=== PATIENT | male | born 1980 | race Caucasian/White ===

== ENCOUNTER 2017-03-11 07:22 | Emergency (ER) | payer BC ==
[2017-03-11 07:29] VITALS: RESP 18
[2017-03-11] MEDS ORDERED: KETOROLAC 30 MG/ML 1 ML VIAL IVP STA (08:12)
[2017-03-11] MEDS ORDERED: MORPHINE SULFATE 4 MG/ML SYRINGE IV STA (08:12)
[2017-03-11] MEDS ORDERED: ONDANSETRON 4 MG/2 ML VIAL IVP STA (08:12)
[2017-03-11] MEDS ORDERED: SODIUM CHLORIDE 0.9% 1,000 ML IV STA (08:12)
[2017-03-11 08:41] LABS: Basophils # (A) 0.1 k/uL (0-0.2); Basophils % (A) 1 %; CH 36.8; CHCM 35.8; Eosinophils # (A) 0.2 k/uL (0-0.7); Eosinophils % (A) 4 %; HCT 41.6 % (39.0-53.0); HDW 2.84; HGB 14.2 gm/dL (13.0-17.5); Luc # (Auto) 0.25; Luc % (Auto) 4; Lymphocytes # (A) 1.3 k/uL (1.0-4.8); Lymphocytes % (A) 22 %; MCH 35.4 pg (25.0-35.0); MCHC 34.3 g/dL (31.0-37.0); MCV 103.4 fL (80.0-100.0); Macrocytosis Slight; Mean Platelet Volume 6.9; Monocytes # (A) 0.4 k/uL (0-1.0); Monocytes % (A) 7 %; Neutrophils # (A) 3.7 k/uL (1.3-7.7); Neutrophils % (A) 63 %; RBC 4.02 m/uL (4.30-5.90); RDW 13.9 % (11.5-15.5); WBC 5.9 k/uL (3.8-10.6); WBC (Perox) 5.74
[2017-03-11 08:50] LABS: Partial Thromboplastin Time 26.2 sec (22.0-30.0); Prothrombin Time 10.1 sec (9.0-12.0)
[2017-03-11 08:51] LABS: ALT 67 U/L (21-72); AST 33 U/L (17-59); Alkaline Phosphatase 95 U/L (38-126); Amylase 30 U/L (30-110); Anion Gap 10 mmol/L; Blood Urea Nitrogen 22 mg/dL (9-20); Calcium 9.1 mg/dL (8.4-10.2); Carbon Dioxide 27 mmol/L (22-30); Chloride 103 mmol/L (98-107); Glucose 165 mg/dL (74-99); Non-African American GFR(MDRD) >60 (>60 ml/min/1.73 sqM); Potassium 4.9 mmol/L (3.5-5.1); Sodium 140 mmol/L (137-145); Total Bilirubin 0.4 mg/dL (0.2-1.3); Total Protein 6.8 g/dL (6.3-8.2)
[2017-03-11 08:58] LABS: Appearance,Urine Cloudy (Clear); Bilirubin,Urine Negative (Negative); Glucose,Urine (UA) Negative (Negative); Ketones,Urine Negative (Negative); Leukocyte Esterase,Urine Negative (Negative); Mucus,Urine Rare /hpf; Nitrite,Urine Negative (Negative); Particle Count 509; Protein,Urine Negative (Negative); Squamous Epithelial Cell,Urine 2 /hpf (0-4); UA Billing (MACRO vs. MICRO) MICRO; Urobilinogen,Urine <2.0 mg/dL (<2.0); WBC,Urine 3 /hpf (0-5)
--- NOTE | 2017-03-11 10:05 | US ---
EXAMINATION TYPE: US scrotum with doppler. Grayscale and color Doppler Duplex imaging performed of dorian aguilar scrotum. DATE OF EXAM: 03/11/2017 COMPARISON: NONE EC patient with right scrotal pain x 1 week. Patient denies trauma or heavy pushing, pulling, or lifting. CLINICAL HISTORY: Pain. EXAM MEASUREMENTS: TESTICLES: Right Testicle: 4.8 x 2.8 x 2.5 cm Left Testicle: 4.6 x 3.1 x 2.1 cm EPIDIDYMIS HEAD: Right Epididymis: 0.8 x 1.9 x 1.0 cm Left Epididymis: 1.7 x 1.6 x 1.5 cm Grayscale, color and spectral Doppler was performed to assess for testicular vascularity; good bilate ral color flow and waveforms are seen. There is no evidence of testicular torsion. Presence of hydroceles: small fluid collection inferior right scrotal sac with mobile low level inte rnal echoes = 2.0 x 0.8 x 0.5cm. Small fluid collection inferior left scrotal sac with mobile low lev el internal echoes = 0.8 x 1.4 x 1.2cm. Presence of varicoceles: mildly prominent veins with valsalva maneuver noted right epididymis inferi jen with vein size = 0.26cm (abnl = >0.25cm). Testicular echotexture is homogenous and symmetric. IMPRESSION: Nonspecific findings, small hydroceles. No evident testicular torsion. Possible borderlin e varicocele.
--- NOTE | 2017-03-11 10:19 | ED ---
Back Pain HPI - General Chief Complaint: Back Pain/Injury Stated Complaint: Lowe back and groin pain Time Seen by Provider: 03/11/17 07:54 Source: patient, RN notes reviewed, old records reviewed Limitations: no limitations - Related Data Previous Rx's Medication Instructions Recorded Cyclobenzaprine [Flexeril] 10 mg PO TID #20 tab 03/11/17 Ibuprofen [Motrin] 600 mg PO Q8HR PRN #20 tab 03/11/17 Allergies Allergy/AdvReac Type Severity Reaction Status Date / Time No Known Allergies Allergy Verified 03/11/17 08:18 Review of Systems ROS Statement: Those systems with pertinent positive or pertinent negative responses have been documented in the HPI. ROS Other: All systems not noted in ROS Statement are negative. Past Medical History Past Medical History: Diabetes Mellitus, Thyroid Disorder History of Any Multi-Drug Resistant Organisms: None Reported Past Surgical History: Orthopedic Surgery, Tonsillectomy Additional Past Surgical History / Comment(s): right ankle Past Psychological History: No Psychological Hx Reported Smoking Status: Never smoker Past Alcohol Use History: Daily Past Drug Use History: None Reported General Exam Limitations: no limitations Course Vital Signs 03/11/17 07:24 Temperature 97.6 F Pulse Rate 84 Respiratory 18 Rate Blood Pressure 169/90 O2 Sat by Pulse 99 Oximetry Medical Decision Making - Lab Data Result diagrams: 03/11/17 08:30 03/11/17 08:30 Lab Results 03/11/17 03/11/17 03/11/17 Range/Units 08:30 08:30 08:30 WBC 5.9 (3.8-10.6) k/uL RBC 4.02 L (4.30-5.90) m/uL Hgb 14.2 (13.0-17.5) gm/dL Hct 41.6 (39.0-53.0) % MCV 103.4 H (80.0-100.0) fL MCH 35.4 H (25.0-35.0) pg MCHC 34.3 (31.0-37.0) g/dL RDW 13.9 (11.5-15.5) % Plt Count 205 (150-450) k/uL Neutrophils % 63 % Lymphocytes % 22 % Monocytes % 7 % Eosinophils % 4 % Basophils % 1 % Neutrophils # 3.7 (1.3-7.7) k/uL Lymphocytes # 1.3 (1.0-4.8) k/uL Monocytes # 0.4 (0-1.0) k/uL Eosinophils # 0.2 (0-0.7) k/uL Basophils # 0.1 (0-0.2) k/uL Macrocytosis Slight PT 10.1 (9.0-12.0) sec INR 1.0 (<1.2) APTT 26.2 (22.0-30.0) sec Sodium 140 (137-145) mmol/L Potassium 4.9 (3.5-5.1) mmol/L Chloride 103 (98-107) mmol/L Carbon Dioxide 27 (22-30) mmol/L Anion Gap 10 mmol/L BUN 22 H (9-20) mg/dL Creatinine 1.11 (0.66-1.25) mg/dL Est GFR (MDRD) Af Amer >60 (>60 ml/min/1.73 sqM) Est GFR (MDRD) Non-Af >60 (>60 ml/min/1.73 sqM) Glucose 165 H (74-99) mg/dL Calcium 9.1 (8.4-10.2) mg/dL Total Bilirubin 0.4 (0.2-1.3) mg/dL AST 33 (17-59) U/L ALT 67 (21-72) U/L Alkaline Phosphatase 95 (38-126) U/L Total Protein 6.8 (6.3-8.2) g/dL Albumin 4.2 (3.5-5.0) g/dL Amylase 30 (30-110) U/L Lipase 122 (23-300) U/L Urine Color Urine Appearance (Clear) Urine pH (5.0-8.0) Ur Specific Glady (1.001-1.035) Urine Protein (Negative) Urine Glucose (UA) (Negative) Urine Ketones (Negative) Urine Blood (Negative) Urine Nitrite (Negative) Urine Bilirubin (Negative) Urine Urobilinogen (<2.0) mg/dL Ur Leukocyte Esterase (Negative) Urine WBC (0-5) /hpf Ur Squamous Epith Cells (0-4) /hpf Urine Mucus (None) /hpf 03/11/17 Range/Units 08:30 WBC (3.8-10.6) k/uL RBC (4.30-5.90) m/uL Hgb (13.0-17.5) gm/dL Hct (39.0-53.0) % MCV (80.0-100.0) fL MCH (25.0-35.0) pg MCHC (31.0-37.0) g/dL RDW (11.5-15.5) % Plt Count (150-450) k/uL Neutrophils % % Lymphocytes % % Monocytes % % Eosinophils % % Basophils % % Neutrophils # (1.3-7.7) k/uL Lymphocytes # (1.0-4.8) k/uL Monocytes # (0-1.0) k/uL Eosinophils # (0-0.7) k/uL Basophils # (0-0.2) k/uL Macrocytosis PT (9.0-12.0) sec INR (<1.2) APTT (22.0-30.0) sec Sodium (137-145) mmol/L Potassium (3.5-5.1) mmol/L Chloride (98-107) mmol/L Carbon Dioxide (22-30) mmol/L Anion Gap mmol/L BUN (9-20) mg/dL Creatinine (0.66-1.25) mg/dL Est GFR (MDRD) Af Amer (>60 ml/min/1.73 sqM) Est GFR (MDRD) Non-Af (>60 ml/min/1.73 sqM) Glucose (74-99) mg/dL Calcium (8.4-10.2) mg/dL Total Bilirubin (0.2-1.3) mg/dL AST (17-59) U/L ALT (21-72) U/L Alkaline Phosphatase (38-126) U/L Total Protein (6.3-8.2) g/dL Albumin (3.5-5.0) g/dL Amylase (30-110) U/L Lipase (23-300) U/L Urine Color Light Yellow Urine Appearance Cloudy (Clear) Urine pH 5.0 (5.0-8.0) Ur Specific Glady 1.010 (1.001-1.035) Urine Protein Negative (Negative) Urine Glucose (UA) Negative (Negative) Urine Ketones Negative (Negative) Urine Blood Negative (Negative) Urine Nitrite Negative (Negative) Urine Bilirubin Negative (Negative) Urine Urobilinogen <2.0 (<2.0) mg/dL Ur Leukocyte Esterase Negative (Negative) Urine WBC 3 (0-5) /hpf Ur Squamous Epith Cells 2 (0-4) /hpf Urine Mucus Rare H (None) /hpf - Radiology Data Radiology results: report reviewed Testicular ultrasound was performed and nonspecific findings including small hydroceles. No evidence of testicular torsion. Possible borderline varicoceles. Disposition Clinical Impression: Lower back pain, Testicular/scrotal pain, Hydrocele Disposition: HOME SELF-CARE Condition: Good Instructions: Testicle Pain (ED), Low Back Strain (ED) Additional Instructions: Patient needs to apply ice to the scrotum, and complete scrotal support such as using a jockstrap. Follow-up with urology and primary care physician. Take the medications as prescribed. Return to emergency department if any alarming signs or symptoms occur. Prescriptions: Cyclobenzaprine [Flexeril] 10 mg PO TID #20 tab Ibuprofen [Motrin] 600 mg PO Q8HR PRN #20 tab PRN Reason: Pain Referrals: Zayra Huitron DO [Primary Care Provider] - 1-2 days Time of Disposition: 11:05
[2017-03-11 11:21] VITALS: BP 136/61; PULSE 76; TEMP 98.4
== END 2017-03-11 11:22 | disposition home or self-care (01) ==
LOC: EC 07:22
DX: N43.3 Hydrocele, unspecified (principal); M54.5 Low back pain
CPT/HCPCS: 36415; 80053; 82150; 83690; 85025; 85610; 85730; 81001; 93975; 76870; 99284; 96374; 96375 ×2; 96361; J2270; J2405; J1885

== ENCOUNTER → 2017-03-12 | Outpatient (CLI) | payer BC ==
--- NOTE | 2017-03-12 15:21 | CT ---
EXAMINATION TYPE: CT abdomen pelvis wo con DATE OF EXAM: 03/12/2017 COMPARISON: NONE HISTORY: Flank pain, RLQ pain CT DLP: 3449 mGycm Automated exposure control for dose reduction was used. TECHNIQUE: Helical acquisition of images from the lung bases through the pelvis. Patient received or al contrast. FINDINGS: Umbilical hernia contains fat. There is motion on the exam. LUNG BASES: No significant abnormality is appreciated. AORTA: No significant abnormality is appreciated. LIVER/GB: The liver is enlarged and low in attenuation suggesting hepatic steatosis. Gallbladder is n ormal. PANCREAS: No significant abnormality is seen. SPLEEN: Spleen is enlarged ADRENALS: No significant abnormality is seen. KIDNEYS: No significant abnormality is seen. REPRODUCTIVE ORGANS: No significant abnormality is seen. URINARY BLADDER: Bladder wall is thickened. Correlate to exclude cystitis. BOWEL: Mild diverticular changes, the appendix is normal. FREE AIR: No Free Air is visible. ASCITES: None visible. PELVIC ADENOPATHY: None visualized. RETROPERITONEAL ADENOPATHY: No Retroperitoneal Adenopathy visible. OSSEOUS STRUCTURES: Bilateral spondylolysis is present. Anterolisthesis grade 1 L5-S1. There may be some encroachment on the neural foramina. Degenerative disc changes are present in the visualized spi ne. Some central loss of height at L1 possibly due to Schmorl's nodes.. IMPRESSION: HEPATOSPLENOMEGALY. PROBABLE HEPATIC STEATOSIS. UMBILICAL HERNIA. CORRELATE FOR POSSIBLE CYSTITIS. Fi ndings in the spine as described, noncontrast exam A Yellow message has been communicated to Zayra Huitron DO via the [employer] Critical Result system on 03/12/2017 3:18 PM, Message ID [id number].
== END | disposition home or self-care (01) ==
LOC: RADCTMAIN 12:47
PROVIDERS: ATTEND Family Medicine
DX: K42.9 Umbilical hernia without obstruction or gangrene (principal); R16.2 Hepatomegaly with splenomegaly, not elsewhere classified; R10.31 Right lower quadrant pain
CPT/HCPCS: 74176

== ENCOUNTER 2021-12-10 13:01 | Observation (INO) | payer OTHER ==
--- NOTE | 2021-12-10 14:08 | ED ---
General Adult HPI - General Chief complaint: Neuro Symptoms/Deficit Stated complaint: Numbness on left Time Seen by Provider: 12/10/21 13:53 Source: patient, family, RN notes reviewed Mode of arrival: wheelchair Limitations: no limitations - History of Present Illness Initial comments: Patient is a pleasant 41-year-old male presenting to the emergency department with concerns for left-sided problems. Onset was around 6:30 last night. Patient's left leg when out on him otherwise has not noticed any weakness. Patient has hot sensations left arm and left leg since that time. No facial involvement. No chest or abdominal pain. Patient does have a mild headache however this is chronic for him and similar to his chronic headaches. - Related Data Previous Rx's Medication Instructions Recorded Cyclobenzaprine [Flexeril] 10 mg PO TID #20 tab 03/11/17 Ibuprofen [Motrin] 600 mg PO Q8HR PRN #20 tab 03/11/17 Allergies Allergy/AdvReac Type Severity Reaction Status Date / Time No Known Allergies Allergy Verified 12/10/21 15:59 Review of Systems ROS Statement: Those systems with pertinent positive or pertinent negative responses have been documented in the HPI. ROS Other: All systems not noted in ROS Statement are negative. Constitutional: Denies: fever Eyes: Denies: eye pain ENT: Denies: ear pain Respiratory: Denies: cough Cardiovascular: Denies: chest pain Endocrine: Denies: fatigue Gastrointestinal: Denies: abdominal pain Genitourinary: Denies: dysuria Musculoskeletal: Denies: back pain Skin: Denies: rash Neurological: Reports: as per HPI, paresthesias Past Medical History Past Medical History: Diabetes Mellitus, Thyroid Disorder History of Any Multi-Drug Resistant Organisms: None Reported Past Surgical History: Orthopedic Surgery, Tonsillectomy Additional Past Surgical History / Comment(s): right ankle Past Psychological History: No Psychological Hx Reported Past Alcohol Use History: Daily Past Drug Use History: None Reported General Exam Limitations: no limitations General appearance: alert, in no apparent distress Head exam: Present: normocephalic Eye exam: Present: normal appearance, PERRL, EOMI ENT exam: Present: normal exam Neck exam: Present: normal inspection Respiratory exam: Present: normal lung sounds bilaterally Cardiovascular Exam: Present: regular rate, normal rhythm GI/Abdominal exam: Present: soft. Absent: tenderness Extremities exam: Present: normal inspection Neurological exam: Present: alert, oriented X3, CN II-XII intact Expanded Neurological exam: Present: protecting the airway Speech: Present: fluid speech Cranial nerves: EOM's Intact: Normal, Facial Sensation: Normal Sensory exam: Upper Extremity Light Touch: Normal, Lower Extremity Light Touch: Abnormal Left Motor strength exam: RUE: 5, LUE: 5, RLE: 5, LLE: 5 Eye Response: (4) open spontaneously Motor Response: (6) obeys commands Verbal Response: (5) oriented Psychiatric exam: Present: normal affect, normal mood Skin exam: Present: normal color Course Vital Signs 12/10/21 12/10/21 13:26 15:07 Temperature 97.9 F Pulse Rate 90 76 Respiratory 20 18 Rate Blood Pressure 129/83 131/67 O2 Sat by Pulse 99 99 Oximetry - Reevaluation(s) Reevaluation #1: 12/10/21 16:00 Repeat EKG shows sinus rhythm with frequent supraventricular complexes. Rate 72. HI 156. QRS 83. QT 3:30. QTC 358. Normal axis. Low QRS voltage. No acute ST change. EKG Findings - EKG Comments: EKG Findings:: Sinus rhythm with a rate of 91. HI 171. QRS 85. QT 331. QTc 380. Normal axis. Low QRS voltage. No acute ST change. Medical Decision Making - Medical Decision Making Patient reevaluated and unchanged. Patient and family updated on results and plan. Case discussed with Dr. cantrell, who will admit covering for hospital observation call. Monitor with concern for atrial fibrillation, repeat EKG will be obtained. - Lab Data Result diagrams: 12/10/21 14:07 12/10/21 14:07 Lab Results 12/10/21 12/10/21 12/10/21 Range/Units 14:07 14:07 14:07 WBC 6.4 (3.8-10.6) k/uL RBC 3.99 L (4.30-5.90) m/uL Hgb 13.9 (13.0-17.5) gm/dL Hct 40.0 (39.0-53.0) % MCV 100.0 (80.0-100.0) fL MCH 34.7 (25.0-35.0) pg MCHC 34.7 (31.0-37.0) g/dL RDW 12.5 (11.5-15.5) % Plt Count 190 (150-450) k/uL MPV 7.0 Neutrophils % 65 % Lymphocytes % 23 % Monocytes % 7 % Eosinophils % 3 % Basophils % 1 % Neutrophils # 4.1 (1.3-7.7) k/uL Lymphocytes # 1.5 (1.0-4.8) k/uL Monocytes # 0.4 (0-1.0) k/uL Eosinophils # 0.2 (0-0.7) k/uL Basophils # 0.1 (0-0.2) k/uL PT 10.2 (9.0-12.0) sec INR 0.9 (<1.2) APTT 25.0 (22.0-30.0) sec Sodium 138 (137-145) mmol/L Potassium 4.8 (3.5-5.1) mmol/L Chloride 102 (98-107) mmol/L Carbon Dioxide 26 (22-30) mmol/L Anion Gap 10 mmol/L BUN 27 H (9-20) mg/dL Creatinine 1.24 (0.66-1.25) mg/dL Est GFR (CKD-EPI)AfAm 82 (>60 ml/min/1.73 sqM) Est GFR (CKD-EPI)NonAf 71 (>60 ml/min/1.73 sqM) Glucose 113 H (74-99) mg/dL Calcium 9.9 (8.4-10.2) mg/dL Total Bilirubin 0.5 (0.2-1.3) mg/dL AST 27 (17-59) U/L ALT 37 (4-49) U/L Alkaline Phosphatase 73 (38-126) U/L Troponin I (0.000-0.034) ng/mL Total Protein 7.0 (6.3-8.2) g/dL Albumin 4.4 (3.5-5.0) g/dL 12/10/21 Range/Units 14:07 WBC (3.8-10.6) k/uL RBC (4.30-5.90) m/uL Hgb (13.0-17.5) gm/dL Hct (39.0-53.0) % MCV (80.0-100.0) fL MCH (25.0-35.0) pg MCHC (31.0-37.0) g/dL RDW (11.5-15.5) % Plt Count (150-450) k/uL MPV Neutrophils % % Lymphocytes % % Monocytes % % Eosinophils % % Basophils % % Neutrophils # (1.3-7.7) k/uL Lymphocytes # (1.0-4.8) k/uL Monocytes # (0-1.0) k/uL Eosinophils # (0-0.7) k/uL Basophils # (0-0.2) k/uL PT (9.0-12.0) sec INR (<1.2) APTT (22.0-30.0) sec Sodium (137-145) mmol/L Potassium (3.5-5.1) mmol/L Chloride (98-107) mmol/L Carbon Dioxide (22-30) mmol/L Anion Gap mmol/L BUN (9-20) mg/dL Creatinine (0.66-1.25) mg/dL Est GFR (CKD-EPI)AfAm (>60 ml/min/1.73 sqM) Est GFR (CKD-EPI)NonAf (>60 ml/min/1.73 sqM) Glucose (74-99) mg/dL Calcium (8.4-10.2) mg/dL Total Bilirubin (0.2-1.3) mg/dL AST (17-59) U/L ALT (4-49) U/L Alkaline Phosphatase (38-126) U/L Troponin I <0.012 (0.000-0.034) ng/mL Total Protein (6.3-8.2) g/dL Albumin (3.5-5.0) g/dL Disposition Clinical Impression: Cerebrovascular accident (CVA) Disposition: ADMITTED IP TO THIS HOSP Is patient prescribed a controlled substance at d/c from ED?: No Referrals: Zayra Huitron DO [Primary Care Provider] - 1-2 days Time of Disposition: 15:58
[2021-12-10 14:31] LABS: INR 0.9 (<1.2); Prothrombin Time 10.2 sec (9.0-12.0)
[2021-12-10 14:34] LABS: Albumin 4.4 g/dL (3.5-5.0); Calcium 9.9 mg/dL (8.4-10.2); Potassium 4.8 mmol/L (3.5-5.1); Total Bilirubin 0.5 mg/dL (0.2-1.3)
--- NOTE | 2021-12-10 14:38 | XR ---
EXAMINATION TYPE: XR chest 2V DATE OF EXAM: 12/10/2021 COMPARISON: NONE HISTORY: Altered mental status, left-sided numbness and headache TECHNIQUE: Frontal and lateral views of the chest are obtained. FINDINGS: There is no focal air space opacity, pleural effusion, or pneumothorax seen. The cardiac silhouette size is within normal limits. The osseous structures are intact. There are overlying car diac leads. Right hemidiaphragm is mildly elevated. IMPRESSION: No acute cardiopulmonary process.
--- NOTE | 2021-12-10 14:42 | CT ---
EXAMINATION TYPE: CT brain wo con DATE OF EXAM: 12/10/2021 COMPARISON: None available HISTORY: headache CT DLP: 1103.6 mGycm Automated exposure control for dose reduction was used. TECHNIQUE: CT scan of the brain is performed without IV contrast administration. FINDINGS: No acute intracranial hemorrhage. No gross acute cortical infarct. No midline shift, herniation or ve ntriculomegaly. Unremarkable castro-white matter differentiation, basal cisterns, sella and CP angles. No gross space-o ccupying lesion, vasogenic edema or mass effect. Unremarkable orbits. Clear visualized paranasal sinuses and mastoid air cells. Unremarkable calvarial bones. IMPRESSION: No acute intracranial abnormality or gross space-occupying lesion by this nonenhanced CT scan.
[2021-12-10 14:52] LABS: Basophils # (A) 0.1 k/uL (0-0.2); Basophils % (A) 1 %; Eosinophils # (A) 0.2 k/uL (0-0.7); Eosinophils % (A) 3 %; HGB 13.9 gm/dL (13.0-17.5); Lymphocytes # (A) 1.5 k/uL (1.0-4.8); Lymphocytes % (A) 23 %; MCH 34.7 pg (25.0-35.0); MCHC 34.7 g/dL (31.0-37.0); Monocytes # (A) 0.4 k/uL (0-1.0); Monocytes % (A) 7 %; Neutrophils # (A) 4.1 k/uL (1.3-7.7); Neutrophils % (A) 65 %; Platelet Count 190 k/uL (150-450); RBC 3.99 m/uL (4.30-5.90); RDW 12.5 % (11.5-15.5); WBC 6.4 k/uL (3.8-10.6)
--- NOTE | 2021-12-10 15:14 | CT ---
EXAMINATION TYPE: CT angio head neck DATE OF EXAM: 12/10/2021 HISTORY: headache and weakness COMPARISON: Nonenhanced CT brain performed earlier same day CT DLP: 908.9 mGycm. Automated Exposure Control for Dose Reduction was Utilized. TECHNIQUE: CTA scan of the head and neck is performed with IV Contrast, patient injected with 65cc m L of Isovue 370, axial images are obtained, coronal and sagittal reformatted images are reviewed. 3D reconstructed images are created on an independent workstation and reviewed. FINDINGS: Artifactual images. Carotid/Vascular Structures: Normal caliber and enhancement of the neck arteries and intracranial art eries without significant stenosis, occlusion, dissection, aneurysm or AV malformation. Patent major intracranial venous sinuses. Other: No intracranial abnormal enhancement. Prominent nasopharyngeal soft tissue. Slightly prominent thyroid gland. IMPRESSION: No significant arterial abnormality seen in the head or the neck. Please note that a subtle arterial spasm or vasculitis cannot be excluded by this CTA. Incidental findings as described above.
[2021-12-10] MEDS ORDERED: ASPIRIN 325 MG TAB PO STA (15:56)
[2021-12-10] MEDS: SODIUM CHLORIDE 0.9% 1,000 ML IV SCH (16:45)
[2021-12-10] MEDS ORDERED: ATORVASTATIN 80 MG TAB PO STA (17:32)
[2021-12-10 18:06] LABS: Glucose,Whole Blood 95 mg/dL (75-99)
--- NOTE | 2021-12-10 19:07 | CA ---
Transthoracic Echo Report Name: Tae Peters Age: 41 Gender: M : 1980 Exam Date: 12/10/2021 16:16 Exam Location: [facility] Ht (in): 73 Wt (lb): 302 Ordering Physician: Lang Chou DO Attending/Referring Phys: Other Spatial Scientist Summer Zavala RDCS Procedure CPT: Indications: Thrombus Cardiac Hx: Technical Quality: Fair Contrast 1: Total Dose (mL): Contrast 2: Total Dose (mL): MEASUREMENTS (Male / Female) Normal Values 2D ECHO LV Diastolic Diameter PLAX 5.2 cm 4.2 - 5.9 / 3.9 - 5.3 cm LV Systolic Diameter PLAX 3.6 cm IVS Diastolic Thickness 1.1 cm 0.6 - 1.0 / 0.6 - 0.9 cm LVPW Diastolic Thickness 1.1 cm 0.6 - 1.0 / 0.6 - 0.9 cm LV Relative Wall Thickness 0.4 RV Internal Dim ED PLAX 3.3 cm LA Systolic Diameter LX 3.6 cm 3.0 - 4.0 / 2.7 - 3.8 cm M-MODE Aortic Root Diameter MM 3.1 cm MV E Point Septal Separation 0.4 cm AV Cusp Separation MM 2.2 cm DOPPLER AV Peak Velocity 137.6 cm/s AV Peak Gradient 7.6 mmHg MV Area PHT 3.7 cm??? Mitral E Point Velocity 104.8 cm/s Mitral A Point Velocity 90.4 cm/s Mitral E to A Ratio 1.2 MV Deceleration Time 203.0 ms MV E' Velocity 12.6 cm/s Mitral E to MV E' Ratio 8.3 FINDINGS Left Ventricle Left ventricular ejection fraction is estimated at 60-65 %. Normal Left ventricular size, wall thickness, systolic function with no obvious regional wall motion abnormalities. Normal Left ventricular diastolic filling pattern. Right Ventricle Mild right ventricular dilatation. Unable to estimate the right ventricular systolic pressure. Right Atrium Normal right atrial size. Left Atrium Normal left atrial size. No evidence for an atrial septal defect. Mitral Valve Structurally normal mitral valve. No mitral stenosis, regurgitation or prolapse. Aortic Valve Trileaflet aortic valve. No aortic valve stenosis or regurgitation. Tricuspid Valve Structurally normal tricuspid valve. Pulmonic Valve No pulmonic regurgitation. Pericardium Normal pericardium. Aorta Normal size aortic root and proximal ascending aorta. CONCLUSIONS Preserved LV size and systolic function without segmental wall motion abnormalities Previewed by: Dr. Kirt Dias MD (Electronically Signed) Final Date: 10 Dec 2021 19:06
[2021-12-10 20:48] LABS: Glucose,Whole Blood 109 mg/dL (75-99)
--- NOTE | 2021-12-10 22:05 | P.HPIM ---
History of Present Illness H&P Date: 12/10/21 Chief Complaint: Left-sided numbness 40-year-old man with medical history of hypertension, hypothyroidism, diabetes presented for evaluation of left-sided numbness. Patient says that starting yesterday around 6:30 PM, he noticed that his left leg was numb, then throughout the day proceeds to involve his left arm as well. He went to sleep, assuming that the symptoms would go away by this morning, however, when they didn't, he presented to the emergency room for further evaluation. He denies fevers, chills, nausea, vomiting, chest pain, palpitations, sick, presyncope, cough, dyspnea, abdominal pain, dysuria, dyschezia, constipation, diarrhea, weakness of the extremities. Upon my evaluation, patient was afebrile, 134/77, heart rate 71, 97% on room air. Pain CBC is unremarkable. Chemistries are unremarkable. LFTs unremarkable. Troponin was negative. TSH was 1.78. Initial EKG demonstrated sinus rhythm with no evidence of ischemia. Second EKG showed sinus rhythm with frequent PACs. Head CT was negative for intracranial bleed or large vessel occlusion. Chest x-ray did not show any acute cardiopulmonary process. CT of the head and neck did not show any significant arterial abnormalities. Echocardiogram showed an ejection fraction of 60-65% without any wall motion abnormality. All Systems reviewed and pertinent positives and negatives noted in HPI, all other symptoms are negative Gen: awake, alert HEENT: normocephalic, atraumatic, good hearing acuity, moist mucous membranes Resp: good air exchange, breathing comfortably with no accessory muscle use CVS: good distal perfusion x 4, GI: soft, NTTP, ND : no SPT, no CVAT, pop catheter not present MSK: no pitting edema, no clubbing Neuro: non-focal, moving all extremities Psych: cooperative, euthymic mood Labs and imaging reviewed as above Assessment/plan: Left-sided numbness -Admit to observation, telemetry -Neurology consult -Aspirin, statin -MRI of the brain is pending -A1c is pending, TSH is noted, lipid panel was pending -Echocardiogram as noted Hypertension Hypothyroidism Diabetes -Home medications reviewed and reconciled -Sliding scale insulin Patient is full code DVT prophylaxis with heparin 3 times a day Past Medical History Past Medical History: Diabetes Mellitus, Thyroid Disorder History of Any Multi-Drug Resistant Organisms: None Reported Past Surgical History: Orthopedic Surgery, Tonsillectomy Additional Past Surgical History / Comment(s): right ankle Past Anesthesia/Blood Transfusion Reactions: No Reported Reaction Past Psychological History: No Psychological Hx Reported Past Alcohol Use History: Daily Past Drug Use History: None Reported - Past Family History Mother Family Medical History: Cancer, COPD Additional Family Medical History / Comment(s): passed from lung and breast cancer Father Family Medical History: Hypertension Additional Family Medical History / Comment(s): of a heart attack Brother(s) Family Medical History: Diabetes Mellitus Additional Family Medical History / Comment(s): half brother hx diabets, dialysis pt Medications and Allergies Home Medications Medication Instructions Recorded Confirmed Type Indomethacin [Indocin] 50 mg PO DAILY 12/10/21 12/10/21 History Levothyroxine Sodium [Synthroid] 75 mcg PO DAILY 12/10/21 12/10/21 History Lisinopril-Hctz 20-25 mg 1 tab PO DAILY 12/10/21 12/10/21 History [Zestoretic 20-25] Semaglutide [Ozempic] 0.5 mg SQ TH 12/10/21 12/10/21 History metFORMIN HCL [metFORMIN HCL ER] 1,000 mg PO BID 12/10/21 12/10/21 History Allergies Allergy/AdvReac Type Severity Reaction Status Date / Time No Known Allergies Allergy Verified 12/10/21 15:59 Physical Exam Osteopathic Statement: *. No significant issues noted on an osteopathic structural exam other than those noted in the History and Physical/Consult. Vitals: Vital Signs Temp Pulse Pulse Resp BP BP Pulse Ox 12/10/21 20:00 97.8 F 71 12 134/77 97 12/10/21 17:45 97.6 F 87 18 120/73 98 12/10/21 16:58 68 18 122/77 99 12/10/21 15:58 71 18 132/72 99 12/10/21 15:07 76 18 131/67 99 12/10/21 13:26 97.9 F 90 20 129/83 99 Intake and Output 12/10/21 12/10/21 12/10/21 06:59 14:59 22:59 Other: Weight 136.985 kg 141.8 kg Results CBC & Chem 7: 12/10/21 14:07 12/10/21 14:07 Labs: Abnormal Lab Results - Last 24 Hours (Table) 12/10/21 12/10/21 12/10/21 Range/Units 14:07 14:07 20:42 RBC 3.99 L (4.30-5.90) m/uL BUN 27 H (9-20) mg/dL Glucose 113 H (74-99) mg/dL POC Glucose (mg/dL) 109 H (75-99) mg/dL Thrombosis Risk Factor Assmnt - Choose All That Apply Each Factor Represents 1 point: Age 41-60 years Thrombosis Risk Factor Assessment Total Risk Factor Score: 1 Thrombosis Risk Factor Assessment Level: Low Risk
[2021-12-10] MEDS: HEPARIN SODIUM,PORCINE/PF 5,000 UNIT/0.5 ML SYRINGE SQ SCH (23:49)
[2021-12-11] MEDS: SODIUM CHLORIDE 0.9% 1,000 ML IV SCH ×2 (02:00→14:10)
[2021-12-11 06:45] LABS: Glucose,Whole Blood 92 mg/dL (75-99)
[2021-12-11] MEDS: INSULIN ASPART (NovoLOG) 100 UNIT/ML VIAL SQ SCH ×3 (06:49→17:41)
[2021-12-11] MEDS: LEVOTHYROXINE 75 MCG TAB PO SCH (06:50)
[2021-12-11] MEDS ORDERED: ASPIRIN 325 MG TAB PO SCH (09:00)
[2021-12-11] MEDS: ASPIRIN 81 MG PO SCH (09:09)
[2021-12-11] MEDS: LISINOPRIL-HCTZ 20-25 MG 1 EACH TAB PO SCH (09:09)
[2021-12-11] MEDS: HEPARIN SODIUM,PORCINE/PF 5,000 UNIT/0.5 ML SYRINGE SQ SCH ×3 (09:10→23:33)
[2021-12-11 09:15] LABS: Basophils # (A) 0.1 k/uL (0-0.2); Basophils % (A) 1 %; Eosinophils # (A) 0.2 k/uL (0-0.7); Eosinophils % (A) 4 %; HCT 40.6 % (39.0-53.0); HGB 13.6 gm/dL (13.0-17.5); Lymphocytes % (A) 23 %; MCH 34.4 pg (25.0-35.0); MCHC 33.6 g/dL (31.0-37.0); MCV 102.1 fL (80.0-100.0); Macrocytosis Slight; Mean Platelet Volume 6.8; Monocytes # (A) 0.3 k/uL (0-1.0); Monocytes % (A) 6 %; Neutrophils # (A) 2.8 k/uL (1.3-7.7); Neutrophils % (A) 63 %; Platelet Count 188 k/uL (150-450); RBC 3.97 m/uL (4.30-5.90); RDW 13.3 % (11.5-15.5); WBC 4.4 k/uL (3.8-10.6)
--- NOTE | 2021-12-11 09:20 | P.CNNES ---
History of Present Illness Consult date: 12/11/21 Requesting physician: Lang Chou Reason for Consult: cva History of Present Illness: This is a 41-year-old gentleman with medical history of diabetes, hypothyroidism, bilateral carpal tunnel syndrome, chronic low back pain who presented to the emergency department on 12/10/2021 for left sided weakness and numbness. Onset of symptoms is around 6:30pm on 12/09/2021. Initially he felt numbness of the left lower extremity with weakness but then felt he could manage with those issues so he went to sleep. Next day he continued to have the same issue with worsening numbness of the left upper extremity more than baseline. He stated he has left carpal tunnel but felt numbness of left upper extremity is worse. So decided to seek medical attention. He noticed weakness of the left arm. Today he has soreness of the left upper extremity. He denies history of stroke or TIA in past. He denies of neck pain and states he has old chronic low back pain but not worse. He drink 2 cups of beer daily and more heavily on weekends. Patient is not on any antiplatelet or anticoagulation. Some of the workup in the hospital consisted of: CT of the head is reported as no acute intracranial abnormality or gross space-occupying lesion by this nonenhanced computed tomography scan. CT angiography of the head and neck reported as no significant arterial abnormality seen in the head or neck. Please note that a subtotal altered spasm or vasculitis cannot be excluded by this CTA. I personally reviewed that a CT of the head and there is no acute or subacute ischemia there is no interpretable hemorrhage. EKG is reported as sinus rhythm with occasional supraventricular premature complexes. White blood cell is 6.4 thousand. Chemistry panels I reviewed it and it seems unremarkable. No IV TPA since the patient is outside the window and the risk outweighed the benefit. Per the ED attending the monitor shows concerning for atrial fibrillation and a repeat EKG was obtained and no atrial fibrillation was seen on the EKG Review of Systems Review of system: The 12 point system was reviewed and apparent positive and negative per HPI. Past Medical History Past Medical History: Diabetes Mellitus, Thyroid Disorder History of Any Multi-Drug Resistant Organisms: None Reported Past Surgical History: Orthopedic Surgery, Tonsillectomy Additional Past Surgical History / Comment(s): right ankle Past Psychological History: No Psychological Hx Reported Past Alcohol Use History: Daily Past Drug Use History: None Reported - Past Family History Mother Family Medical History: Cancer, COPD Additional Family Medical History / Comment(s): passed from lung and breast cancer Father Family Medical History: Hypertension Additional Family Medical History / Comment(s): of a heart attack Brother(s) Family Medical History: Diabetes Mellitus Additional Family Medical History / Comment(s): half brother hx diabets, dialysis pt Medications and Allergies Home Medications Medication Instructions Recorded Confirmed Type Indomethacin [Indocin] 50 mg PO DAILY 12/10/21 12/10/21 History Levothyroxine Sodium [Synthroid] 75 mcg PO DAILY 12/10/21 12/10/21 History Lisinopril-Hctz 20-25 mg 1 tab PO DAILY 12/10/21 12/10/21 History [Zestoretic 20-25] Semaglutide [Ozempic] 0.5 mg SQ TH 12/10/21 12/10/21 History metFORMIN HCL [metFORMIN HCL ER] 1,000 mg PO BID 12/10/21 12/10/21 History Allergies Allergy/AdvReac Type Severity Reaction Status Date / Time No Known Allergies Allergy Verified 12/10/21 15:59 Physical Examination - Vital Signs Vital Signs: Vital Signs Temp Pulse Resp BP Pulse Ox 12/10/21 16:58 68 18 122/77 99 12/10/21 15:58 71 18 132/72 99 12/10/21 15:07 76 18 131/67 99 12/10/21 13:26 97.9 F 90 20 129/83 99 Intake and Output 12/10/21 12/10/21 12/10/21 06:59 14:59 22:59 Other: Weight 136.985 kg GENERAL: The patient is lying in bed and is not in acute distress. CHEST: The heart rate is regular rate rhythm. No murmurs to auscultation. No carotid bruit bilaterally. LUNG: Clear to auscultation bilaterally no wheezing noted throughout. Not labored breathing. ABDOMEN/GI: Bowel sounds present in all 4 quadrants. No tenderness to palpation throughout. NEUROLOGICAL: Higher mental function: The patient is awake, alert, oriented to self, place and time. Patient is following commands. No aphasia and no neglect. Cranial nerves: The pupils are round, equal and reactive to light and accommodation. Visual kendrick are full to confrontation throughout. Extraocular movement is intact no nystagmus is noted. Facial sensation is normal to touch throughout. The facial strength is normal throughout. Hearing is normal bilaterally to hand rub. Tongue is midline and moved [id number] without any difficulty. No dysarthria is noted. Shoulder shrug is normal bilaterally. Motor: Gait is slightly angtalgic over the left and patient stated old. The strength is left upper extremity is limited because of his pain but has at least 4+. Otherwise 5 over 5 throughout. Normal tone and bulk. Cerebellum: Normal finger to nose bilaterally. Sensation: Sensation is decreased to touch throughout. Reflexes (right/left): 2+ throughout except could not assess left upper because of his pain. Plantars are downgoing bilaterally. Results - Laboratory Findings CBC and BMP: 12/11/21 08:22 12/10/21 14:07 Abnormal Lab Findings: Abnormal Labs 12/10/21 12/10/21 14:07 14:07 RBC 3.99 L BUN 27 H Glucose 113 H Assessment and Plan Assessment: Acute left-sided weakness and numbness: Seems Probable acute ischemic stroke. Rule out cervical spondylosis. Diabetes mellitus Hypothyroidism Bilateral carpal tunnel syndrome Alcohol use Plan: In the ED the patient was given aspirin 325 once. Then aspirin 325 mg daily was started. I started the patient on Lipitor 80 mg once then 40mg daily for secondary stroke prophylaxis. Ordered MRI of the brain and MRI C-spine (pending if compatible since has metal in chest and right lower extremity). If unable will get CT instead. Continue neuro checks Cardiac monitoring 2-D echo: Reported as preserved LV size and systolic function. Normal left atrial size. Lipid panel is pending TSH: 1.78, hemoglobin A1c: 5.4 PT OT and SHADING PAINTER are consulted For alcohol started the patient on thiamine 100mg daily and was counseled on alcohol cessation. We'll defer the rest of medical management to primary team For DVT prophylaxis I started the patient on subcu heparin 5000 units every 8 hours. The plan is discussed with the patient. Thank you for the consultation. Eirc Ferrer M.D. Neuro-hospitalist Time with Patient: Greater than 30
[2021-12-11 09:33] LABS: African American GFR (CKD) 80 (>60 ml/min/1.73 sqM); Anion Gap 9 mmol/L; Blood Urea Nitrogen 24 mg/dL (9-20); Calcium 9.2 mg/dL (8.4-10.2); Carbon Dioxide 27 mmol/L (22-30); Chloride 104 mmol/L (98-107); Glucose 120 mg/dL (74-99); Magnesium 1.3 mg/dL (1.6-2.3); Non-African American GFR(CKD) 69 (>60 ml/min/1.73 sqM); Potassium 4.9 mmol/L (3.5-5.1); Sodium 140 mmol/L (137-145)
[2021-12-11 11:46] LABS: Glucose,Whole Blood 95 mg/dL (75-99)
--- NOTE | 2021-12-11 11:55 | MR ---
EXAMINATION TYPE: MR brain wo/w cspine wo DATE OF EXAM: 12/11/2021 COMPARISON: CT brain 12/10/2021 HISTORY: Left sided weakness and numbness, stroke TECHNIQUE: Multiplanar, multisequence images of the brain and brainstem is performed without and with IV contras t, utilizing 14 mL intravenous Gadavist . Multiplanar multisequence imaging through the cervical spin e. FINDINGS: Brain MRI: Diffusion weighted images demonstrate no evidence of a recent infarct or other diffusion a bnormality. There is no extra-axial fluid collection or significant white matter signal abnormality. The ventricular system and cisternal spaces are normal in size and appearance. The brain volume is age appropriate. Midline structures demonstrate normal morphology. The craniocervical junction appears within normal limits. Post contrast images demonstrate no abnormal enhancement. The dural venous sinuses appear pa tent. The visualized sinuses are remarkable for mucosal thickening in the maxillary sinuses and ethmo id air cells, and the globes are intact. IMPRESSION: Unremarkable brain MRI. Sinus disease is mild. Cervical spine MRI: There is multilevel spondylosis. Some loss of disc height signal is present at in tervertebral disc levels of C4-5, C5-6 and C6-7, there is no evident spinal stenosis. Cervical cord s ignal is normal, slight spinal curvature is noted. C2-3 shows no significant abnormality C3-4: There is some left-sided uncovertebral joint hypertrophy causing some foraminal encroachment. N o evident disc herniation. C4-5: Left posterior paracentral disc protrusion causes anterolateral mass effect on the thecal sac, uncovertebral joint hypertrophy results in bilateral foraminal encroachment. Her graft C5-6: Uncovert ebral joint hypertrophy causes some right foraminal encroachment. There is a left posterior paracentr al disc herniation causing anterolateral mass effect on the thecal sac, encroachment of the left neur al foramen. C6-7: Posterior broad-based disc bulge causes mild anterior mass effect on the thecal sac. Uncoverteb ral joint hypertrophy results in some right-sided foraminal encroachment. C7-T1: Unremarkable IMPRESSION: Multilevel degenerative disc disease, disc herniations as described
--- NOTE | 2021-12-11 13:50 | P.DS ---
Providers Date of admission: 12/10/21 15:58 Expected date of discharge: 12/11/21 Attending physician: Gaby Blanchard, Consults: 12/10/21 15:57 Consult Physician Urgent Consulting Provider: Eric Ferrer Consult Reason/Comments: cva Do you want consulting provider notified?: Yes Primary care physician: Zayra Huitron Hospital Course: Discharge Diagnosis: Cervical spine stenosis, patient to follow up outpatient with orthospine specialist in office Left-sided numbness, improved likely secondary to above CVA ruled out, MRI brain negative for acute or subacute intercranial process. Hypomagnesemia, replaced. Patient discharged with prescription for repeat BMP and magnesium to be drawn outpatient in 3 days with results to be sent to PCP for follow-up. Left upper and lower extremity numbness, likely secondary to cervical spine stenosis accompanied by severe hypomagnesemia Uns-jqzgnqv-vzslhdesk diabetes mellitus type 2, hemoglobin A1c stable at 5.4% Hypertension, continue daily medication regimen with lisinopril/hydrochlorothiazide Hypothyroidism, continue daily medication regimen with levothyroxine Hospital Course: Patient is a very pleasant 40-year-old male with a past medical history of hypertension, hypothyroidism, and type II upw-rlhyepl-owrtjmqsf diabetes mellitu s. He presented to the emergency department with left upper and lower extremity numbness. He was seen and fully evaluated. CT brain was completed negative for acute intercranial abnormalities. CTA head and neck negative for acute process showing no significant arterial abnormality in the head or neck. EKG showing normal sinus rhythm with frequent PACs. CBC, coags, and CMP showing no signific ant abnormalities. Troponin less than 0.012. TSH normal findings at 1.780. Patient was admitted under our services with consultation to neurology. An echocardiogram was completed revealing normal EF of 60-65% without segmental wall motion abnormalities and no significant valvular abnormalities. MRI head and cervical spine also completed and repeat labs showing significant hypomagnesemia with magnesium of 1.3. Orders placed for replacement. MRI brain resulting unremarkable showing no acute intracranial process. MRI cervical spine revealing multilevel degenerative disc disease with left posterior paracentral disc herniation C5 through C6 causing anterolateral mass effect on the thecal sac and encroachment of the left neural foramen and C6 through C7 with posterior broad based disc bulge causing mild anterior mass effect on the thecal sac. Findings were discussed with orthospine surgery team recommending outpatient follow-up in their office. Discussed results with neurology clearing patient from neurological standpoint for discharge home in agreement with follow up outpatient with orthospine surgery team. Physical exam: Patient seen and examined at bedside. Vital signs reviewed and stable. General: Nontoxic, no distress and appears stated age. Derm: Skin warm and dry, normal coloration for ethnicity. Head: Atraumatic, normocephalic and symmetric. Eyes: EOMs intact, no lid lag, and anicteric sclera Mouth: no lip lesions, mucus membranes moist Cardiovascular: Irregularly irregular with normal S1S2, no murmur, positive posterior tibial pulses bilaterally, and cap refill < 2 seconds. (Patient on monitor throwing frequent PACs, but maintaining sinus rhythm) Lungs: Respirations even, regular, and unlabored on room air. Lungs CTA bilaterally, no rhonchi, no rales, no wheezing, and no accessory muscle usage. Abdominal: soft, nontender to palpation, no guarding, no appreciable organomegaly Ext: ROM intact. No gross muscle atrophy, no edema, no contractures. Patient reports slight decreased sensation to left lower extremity and left upper extremity when compared to right however has full range of motion and strength intact. Strength is equal and strong to bilateral upper and lower extremities. Neuro: Speech clear, face symmetrical and CN II-XII grossly intact with no noted focal neuro deficits. Patient reports slight decreased sensation to left lower extremity and left upper extremity upon light touch. Otherwise showing no noted neurological deficits. Psych: Alert and oriented to person, place, time, and situation. Appropriate and pleasant affect. A total of 32 minutes of time were spent preparing this complex discharge summary. Pt was discharged on 12/11/21 at 1:47 PM. Don Miles NP rendered care for this patient independently, reviewed the findings and plan as documented in the note above. I did not physically speak with or examine the patient on this date. Patient Condition at Discharge: Stable Plan - Discharge Summary Discharge Rx Participant: Yes New Discharge Prescriptions: Continue metFORMIN HCL [metFORMIN HCL ER] 1,000 mg PO BID Levothyroxine Sodium [Synthroid] 75 mcg PO DAILY Semaglutide [Ozempic] 0.5 mg SQ TH Lisinopril-Hctz 20-25 mg [Zestoretic 20-25] 1 tab PO DAILY Indomethacin [Indocin] 50 mg PO DAILY Discharge Medication List Indomethacin [Indocin] 50 mg PO DAILY 12/10/21 [History] Levothyroxine Sodium [Synthroid] 75 mcg PO DAILY 12/10/21 [History] Lisinopril-Hctz 20-25 mg [Zestoretic 20-25] 1 tab PO DAILY 12/10/21 [History] Semaglutide [Ozempic] 0.5 mg SQ TH 12/10/21 [History] metFORMIN HCL [metFORMIN HCL ER] 1,000 mg PO BID 12/10/21 [History] Follow up Appointment(s)/Referral(s): Zayra Huitron DO [Primary Care Provider] - 1-2 days Chase Hernandez DO [Doctor of Osteopathic Medicine] - 1 Week Ambulatory/Diagnostic Orders: Basic Metabolic Panel [LAB.AMB] Location: None Selected Magnesium [LAB.AMB] Time Frame: 3 Days, Location: None Selected Activity/Diet/Wound Care/Special Instructions: Activity: As tolerated. Take breaks as needed. Diet: Heart healthy and carb consistent diet. Avoid salts, or foods with hidden salts such as canned or boxed foods and frozen dinners. Extra salt makes your heart work harder and traps the fluid in your body for longer. Special Instructions: Take all of your medications as directed and remember to keep all of your doctor's appointments and follow-up as needed. MRI ruled out a stroke, however it did show that you have some cervical spinal stenosis (meaning narrowing of your spinal canal) secondary to degenerative disk disease. It is recommended that you follow up outpatient with a orthospine specialist, Dr. Hernandez. Your hemoglobin A1c is 5.4%, great job on keeping your blood glucose levels under control!!! Thank you for allowing us to participate in your care, it was truly a pleasure having you for our patient!!! Discharge Disposition: HOME SELF-CARE
[2021-12-11] MEDS: MAGNESIUM SULFATE-D5W PMX 1 GM in DEXTROSE/WATER 1 100ML.BAG IVPB SCH ×4 (14:11→21:26)
[2021-12-11] MEDS: NITROGLYCERIN SL TABS 0.4 MG TAB SUBLINGUAL PRN (14:20)
[2021-12-11 14:44] LABS: Chol/HDL Ratio 3.65 Ratio; LDL Cholesterol,Calculated 61.5 mg/dL (0.0-131.0)
[2021-12-11 16:37] LABS: Glucose,Whole Blood 102 mg/dL (75-99)
[2021-12-11] MEDS: THIAMINE 100 MG TAB PO SCH (18:44)
[2021-12-11 20:39] LABS: Glucose,Whole Blood 166 mg/dL (75-99)
[2021-12-11] MEDS ORDERED: ATORVASTATIN 80 MG TAB PO SCH (21:00)
[2021-12-11] MEDS ORDERED: ATORVASTATIN 40 MG TAB PO SCH (21:00)
[2021-12-11] MEDS: ACETAMINOPHEN TAB 325 MG TAB PO PRN (23:33)
[2021-12-12] MEDS: NITROGLYCERIN SL TABS 0.4 MG TAB SUBLINGUAL PRN (02:42)
--- NOTE | 2021-12-12 03:55 | P.PN ---
Progress Note - Text Progress Note Date: 12/12/21 Notified by the RN that the patient is complaining of acute left forearm pain. Patient was seen at the bedside. He reported gradual onset of left elbow to left wrist pain, none at rest, 10 out of 10 with movement, brought on only with movement. Reports a history of such pain whenever he falls sleeps on his arm. Upon examination, left arm is non-edematous, nontender on palpation, and non erythematous. There is pain elicited with any movement of the arm. Radial pulse is 2+ and equal bilaterally. No overlying skin changes are noted. Notes that the pain has improved after receiving Tylenol and cold packs. Will order left upper extremity Doppler.
[2021-12-12 06:16] LABS: Glucose,Whole Blood 117 mg/dL (75-99)
[2021-12-12 06:18] VITALS: TEMP 98.1
[2021-12-12] MEDS: INSULIN ASPART (NovoLOG) 100 UNIT/ML VIAL SQ SCH (06:20)
[2021-12-12] MEDS: SODIUM CHLORIDE 0.9% 1,000 ML IV SCH (06:21)
[2021-12-12] MEDS: LEVOTHYROXINE 75 MCG TAB PO SCH (06:23)
[2021-12-12] MEDS: ACETAMINOPHEN TAB 325 MG TAB PO PRN (06:23)
[2021-12-12] MEDS: LISINOPRIL-HCTZ 20-25 MG 1 EACH TAB PO SCH (09:59)
[2021-12-12] MEDS: THIAMINE 100 MG TAB PO SCH (09:59)
[2021-12-12] MEDS: ASPIRIN 81 MG PO SCH (09:59)
[2021-12-12] MEDS: HEPARIN SODIUM,PORCINE/PF 5,000 UNIT/0.5 ML SYRINGE SQ SCH (10:00)
--- NOTE | 2021-12-12 10:33 | P.PN ---
Progress Note - Text Progress Note Date: 12/12/21 Imaging reviewed. MRI of brain and C spine. C spine shows some minor spondylotic changes from C4-7 with small disc protrusions on the LHS at C4-5 and C5-6. This causes mild foraminal stenosis, no severe central stenosis. There is mild central stenosis due to broad based disc bulge at C6-7. C4-6 findings could correlate with his sx, howevere pt also has CTS and Cubital tunnel sx on exam. Would recommend steroids and follow up out pt with Dr. Rahman for cubital and carpal tunnel. I will be happy to follow him in office for his neck issues. No findings explain his leg sx at this time.
[2021-12-12 10:51] VITALS: BP 120/77; PULSE 81; RESP 18
[2021-12-12] MEDS ORDERED: DEXAMETHASONE SOD PHOSPHATE 10 MG/ML 1 ML VIAL IVP STA (10:54)
--- NOTE | 2021-12-12 10:54 | P.CNOR ---
History of Present Illness - [facility] Consult date: 12/12/21 Requesting physician: Don Miles Consult reason: other (cervical stenosis, left arm pain) History of present illness: Patient is a 41-year-old male with a medical history of diabetes, hyp othyroidism, carpal tunnel syndrome who presented to the emergency department [facility] on 12/10/2021 with a chief complaint of left-sided weakness. Patient was seen at bedside this morning resting comfortably lying in semirecumbent position. Orthopedics has been consulted for cervical stenosis and left arm numbness. Patient says on Friday night he was walking outside at his house when his left leg gave out on him and it began to become numb and tingly. Patient says for about 24 hours he was not able to have any function or use in his left lower extremity. Patient denies any previous trauma to the extremity. Patient also mentions he does have some left arm pain which has been ongoing in nature. Patient says the pain in the left arm goes from his elbow to his wrist/hand. Patient says all of his fingers become numb/tingly at times. Patient notes numbness/tingling in the digits of his upper extremities at night and it does wake him up at times. 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 Patient says over the past couple days the left lower extremity symptoms have resolved. Patient denies any previous history of strokes/heart attack. Patient does say his father at the age of 59 of a heart attack and that his grandfather of heart attack. Patient denies any previous orthopedic surgical history. Patient says he has had 1 injection in the left shoulder previously. Patient says he has used wrist braces for carpal tunnel in the past. CT of brain/MRI of brain negative for any acute intracranial process. MRI of C-spine does demonstrate some spondylosis as well as some degenerative disc disease. Negative for any significant central spinal cord stenosis or neuroforaminal stenosis. Patient did have an episode of substernal chest pain last night and was worked up and found to have premature atrial contractions on EKG. Medicine has consult of cardio for workup. Patient denies any increasing chest pain, fever, shortness of breath, nausea, vomiting, change in vision, loss of bowel/bladder control. Past Medical History Past Medical History: Diabetes Mellitus, Thyroid Disorder History of Any Multi-Drug Resistant Organisms: None Reported Past Surgical History: Orthopedic Surgery, Tonsillectomy Additional Past Surgical History / Comment(s): right ankle Past Anesthesia/Blood Transfusion Reactions: No Reported Reaction Past Psychological History: No Psychological Hx Reported Past Alcohol Use History: Daily Past Drug Use History: None Reported - Past Family History Mother Family Medical History: Cancer, COPD Additional Family Medical History / Comment(s): passed from lung and breast cancer Father Family Medical History: Hypertension Additional Family Medical History / Comment(s): of a heart attack Brother(s) Family Medical History: Diabetes Mellitus Additional Family Medical History / Comment(s): half brother hx diabets, dialysis pt Medications and Allergies Home Medications Medication Instructions Recorded Confirmed Type Indomethacin [Indocin] 50 mg PO DAILY 12/10/21 12/10/21 History Levothyroxine Sodium [Synthroid] 75 mcg PO DAILY 12/10/21 12/10/21 History Lisinopril-Hctz 20-25 mg 1 tab PO DAILY 12/10/21 12/10/21 History [Zestoretic 20-25] Semaglutide [Ozempic] 0.5 mg SQ TH 12/10/21 12/10/21 History metFORMIN HCL [metFORMIN HCL ER] 1,000 mg PO BID 12/10/21 12/10/21 History Allergies Allergy/AdvReac Type Severity Reaction Status Date / Time No Known Allergies Allergy Verified 12/10/21 15:59 Physical Examination Inspection: Negative for any significant ecchymosis, erythema, nodules, open fractures. Mild swelling present in the left upper extremity and the hand and forearm. Sensation: Sensation is equal, symmetric, bilaterally intact in bilateral upper and lower extremities. Palpation: significant TTP over left elbow on ulnar aspect. minimal TTP over distal forearm. NTTP throughout rest of exam. Range of motion: Patient has full range of motion in hip flexion/extension, knee flexion/extension and ankle dorsiflexion/plantarflexion in bilateral lower extremities. Patient has full range of motion right upper extremity and shoulder forward elevation, abduction, elbow flexion/extension, wrist flexion/extension. Patient does have limited range of motion left upper extremity especially on elbow flexion due to pain. Patient is unable to fully supinate left hand flex left elbow without being in mod-severe pain in left arm. Patient is able to move digits in bilateral upper extremities. Motor: 5/5 in bilateral lower extremities and hip flexion/extension, knee flexion/extension, ankle plantar/dorsiflexion. Right upper extremity 5/5 in resisted elbow flexion/extension, wrist flexion/extension, shoulder abduction/internal/external rotation. Left upper extremity motor exam limited due to patient's pain. Neurovascular status: Radial pulses intact, 2+ bilaterally. Dorsalis pedis pulses intact bilaterally. Cap refill under 3 seconds in digits in upper extremities. Special tests: Negative Homans bilaterally; negative clonus bilaterally; negative Mitchell's bilaterally Results - Labs Labs: Abnormal Lab Results - Last 24 Hours (Table) 12/11/21 12/11/21 12/11/21 Range/Units 08:22 08:22 16:36 RBC 3.97 L (4.30-5.90) m/uL MCV 102.1 H (80.0-100.0) fL BUN 24 H (9-20) mg/dL Creatinine 1.27 H (0.66-1.25) mg/dL Glucose 120 H (74-99) mg/dL POC Glucose (mg/dL) 102 H (75-99) mg/dL Magnesium 1.3 L (1.6-2.3) mg/dL Triglycerides 150.00 H (0.00-149.00) mg/dL HDL Cholesterol 34.50 L (40.00-60.00) mg/dL 12/11/21 12/12/21 Range/Units 20:37 06:14 RBC (4.30-5.90) m/uL MCV (80.0-100.0) fL BUN (9-20) mg/dL Creatinine (0.66-1.25) mg/dL Glucose (74-99) mg/dL POC Glucose (mg/dL) 166 H 117 H (75-99) mg/dL Magnesium (1.6-2.3) mg/dL Triglycerides (0.00-149.00) mg/dL HDL Cholesterol (40.00-60.00) mg/dL H & H 12/10/21 12/11/21 Range/Units 14:07 08:22 Hgb 13.9 13.6 (13.0-17.5) gm/dL Hct 40.0 40.6 (39.0-53.0) % Coagulation 12/10/21 Range/Units 14:07 INR 0.9 (<1.2) Result Diagrams: 12/11/21 08:22 12/11/21 08:22 Assessment and Plan Assessment: 1. Cubital tunnel syndrome, left arm; carpal tunnel syndrome, bilateral; cervical spondylosis; DDD 2. Multiple medical comorbidities Plan: 1. Cubital tunnel syndrome, left arm; carpal tunnel syndrome, bilateral; cervical spondylosis; DDD- patient stable at bedside this morning. Findings on physical exam show cubital tunnel syndrome on left arm as well as bilateral carpal tunnel syndrome. I did discuss the findings of the MRI with my attending, Dr. Hernandez. While MRI of cervical spine does demonstrate spondylosis as well as degenerative disc disease, which could display some of symptoms in the upper extremities, findings on physical exam demonstrate cubital and carpal tunnel. Recommend patient to be started in 10 mg decadron IVPB and to be sent home with medrol dose tylor. At this time we do not recommend any emergent/urgent orthopedic surgical intervention. We do recommend patient to follow-up in the outpatient setting with our hand surgeon, Dr. Rahman for further evaluation. From an orthopedic standpoint, patient is stable for discharge home. At this time orthopedics is signing off. Please do not hesitate to con tact us for any further questions. 2. Appreciate medical, cardio, neuro management 3. Pain management - tylenol 4. DVT ppx - Aspirin; Heparin 5. GI ppx 6. PT/OT - WBAT; apply wrist brace to bilateral upper extremities at night to help with carpal tunnel sx. 7. Appreciate consult Time with Patient: Less than 30
[2021-12-12] MEDS ORDERED: DEXAMETHASONE SOD PHOSPHATE 10 MG/ML 1 ML VIAL IVP ONE (11:30)
[2021-12-12 11:41] LABS: Glucose,Whole Blood 106 mg/dL (75-99)
[2021-12-12] MEDS ORDERED: MAGNESIUM OXIDE 400 MG TAB PO SCH (12:15)
--- NOTE | 2021-12-12 12:59 | P.DS ---
Providers Date of admission: 12/10/21 15:58 Expected date of discharge: 12/12/21 Attending physician: Gaby Blanchard DO Consults: 12/10/21 15:57 Consult Physician Urgent Consulting Provider: Eric Ferrer Consult Reason/Comments: cva Do you want consulting provider notified?: Yes 12/11/21 14:08 Consult Physician Urgent Consulting Provider: Tu Arce Consult Reason/Comments: chest pain, frequent PACs Do you want consulting provider notified?: Yes 12/12/21 07:53 Consult Physician Urgent Consulting Provider: Chase Hernandez Consult Reason/Comments: cervical stenosis, left arm pain Do you want consulting provider notified?: Yes Primary care physician: Zayra Huitron Hospital Course: Discharge Diagnosis: Cervical spine stenosis, patient to follow up outpatient with orthospine specialist in office Left Arm/Elbow/wrist pain, secondary to carpal tunnel syndrome and cubital tunnel syndrome/ulnar nerve entrapment. Patient given IV Decadron and being discharged home with prednisone taper, Motrin 800 mg tablets, and instructed to apply ice, rest, and elevation over the next couple days followed by using wrist brace to bilateral upper extremities at night to help with carpal tunnel symptoms and may follow up in office with orthopedic specialists as needed. Left-sided numbness, improved likely secondary to above Chest pain, acute coronary event ruled out CVA ruled out, MRI brain negative for acute or subacute intercranial process. Hypomagnesemia, replaced. Patient discharged with prescription for repeat BMP and magnesium to be drawn outpatient in 3 days with results to be sent to PCP for follow-up. [id number] diabetes mellitus type 2, hemoglobin A1c stable at 5.4% Hypertension, continue daily medication regimen with lisinopril/hydrochlorothiazide Hypothyroidism, continue daily medication regimen with levothyroxine Hospital Course: Patient is a very pleasant 40-year-old male with a past medical history of hypertension, hypothyroidism, and type II [id number] diabetes mellitus. He presented to the emergency department with left upper and lower extremity numbness. He was seen and fully evaluated. CT brain was completed negative for acute intercranial abnormalities. CTA head and neck negative for acute process showing no significant arterial abnormality in the head or neck. EKG showing normal sinus rhythm with frequent PACs. CBC, coags, and CMP showing no significant abnormalities. Troponin less than 0.012. TSH normal findings at 1.780. Patient was admitted under our services with consultation to neurology. An echocardiogram was completed revealing normal EF of 60-65% without segmental wall motion abnormalities and no significant valvular abnormalities. MRI head and cervical spine also completed and repeat labs showing significant hypomagnesemia with magnesium of 1.3. Orders placed for replacement. MRI brain resulting unremarkable showing no acute intracranial process. MRI cervical spine revealing multilevel degenerative disc disease with left posterior paracentral disc herniation C5 through C6 causing anterolateral mass effect on the thecal sac and encroachment of the left neural foramen and C6 through C7 with posterior broad based disc bulge causing mild anterior mass effect on the thecal sac. On 12/11/21 patient began to report chest pain and underwent cardiac workup. Repeat EKG again showing sinus mechanism with frequent PACs. Troponins were trended 3 all negative resulting in less than 0.012. Patient underwent evaluation by cardiology clearing patient from cardiac perspective recommending outpatient follow-up in the office. Patient also evaluated by orthopedic surgery secondary to reports of left arm/elbow/wrist pain. Orthopedic surgery evaluated stating pain likely secondary to carpal tunnel syndrome and cubital tunnel syndrome and may follow-up outpatient in their office with hand specialist. Patient administered IV Decadron and being discharged home on prednisone taper, Motrin 800 mg tablets and instructed to apply ice, rest, and elevation over the next couple days followed by using wrist brace to bilateral upper extremities at night to help with preventing carpal tunnel symptoms. Patient medically stable for discharge at this time. Physical exam: Patient seen and examined at bedside. Vital signs reviewed and stable. General: Nontoxic, no distress and appears stated age. Derm: Skin warm and dry, normal coloration for ethnicity. Head: Atraumatic, normocephalic and symmetric. Eyes: EOMs intact, no lid lag, and anicteric sclera Mouth: no lip lesions, mucus membranes moist Cardiovascular: Irregularly irregular with normal S1S2, no murmur, positive posterior tibial pulses bilaterally, and cap refill < 2 seconds. (Patient on monitor throwing frequent PACs, but maintaining sinus rhythm) Lungs: Respirations even, regular, and unlabored on room air. Lungs CTA bilaterally, no rhonchi, no rales, no wheezing, and no accessory muscle usage. Abdominal: soft, nontender to palpation, no guarding, no appreciable organomegaly Ext: ROM intact. No gross muscle atrophy, no edema, no contractures. Patient reports slight decreased sensation to left lower extremity and left upper extremity when compared to right however has full range of motion and strength intact. Strength is equal and strong to bilateral upper and lower extremities. Neuro: Speech clear, face symmetrical and CN II-XII grossly intact with no noted focal neuro deficits. Patient reports slight decreased sensation to left lower extremity and left upper extremity upon light touch. Otherwise showing no noted neurological deficits. Psych: Alert and oriented to person, place, time, and situation. Appropriate and pleasant affect. A total of 33 minutes of time were spent preparing this complex discharge summary. Pt was discharged on 12/12/21 at 12:34 PM. Don Miles NP rendered care for this patient independently, reviewed the findings and plan as documented in the note above. I did not physically speak with or examine the patient on this date. Patient Condition at Discharge: Stable Plan - Discharge Summary Discharge Rx Participant: Yes New Discharge Prescriptions: New predniSONE See Taper PO DIRECTED 12 Days #30 tab Magnesium Oxide [Mag-Ox] 400 mg PO DAILY 30 Days #30 tab Ibuprofen [Motrin] 800 mg PO Q8H PRN #24 tab PRN Reason: Pain Continue metFORMIN HCL [metFORMIN HCL ER] 1,000 mg PO BID Levothyroxine Sodium [Synthroid] 75 mcg PO DAILY Semaglutide [Ozempic] 0.5 mg SQ TH Lisinopril-Hctz 20-25 mg [Zestoretic 20-25] 1 tab PO DAILY Indomethacin [Indocin] 50 mg PO DAILY Discharge Medication List Indomethacin [Indocin] 50 mg PO DAILY 12/10/21 [History] Levothyroxine Sodium [Synthroid] 75 mcg PO DAILY 12/10/21 [History] Lisinopril-Hctz 20-25 mg [Zestoretic 20-25] 1 tab PO DAILY 12/10/21 [History] Semaglutide [Ozempic] 0.5 mg SQ TH 12/10/21 [History] metFORMIN HCL [metFORMIN HCL ER] 1,000 mg PO BID 12/10/21 [History] Ibuprofen [Motrin] 800 mg PO Q8H PRN #24 tab 12/12/21 [Rx] Magnesium Oxide [Mag-Ox] 400 mg PO DAILY 30 Days #30 tab 12/12/21 [Rx] predniSONE See Taper PO DIRECTED 12 Days #30 tab 12/12/21 [Rx] Follow up Appointment(s)/Referral(s): Gonzalo Rahman DO [Doctor of Osteopathic Medicine] - 2 Weeks (Patient will make own appointments) Zayra Huitron DO [Primary Care Provider] - 1-2 days (Patient will make own appointments) Chase Hernandez DO [Doctor of Osteopathic Medicine] - As Needed (Patient will make own appointments) Bree De Guzman MD [STAFF PHYSICIAN] - 1 Week (Patient will make own appointments) Ambulatory/Diagnostic Orders: Basic Metabolic Panel [LAB.AMB] Location: None Selected Magnesium [LAB.AMB] Time Frame: 3 Days, Location: None Selected Activity/Diet/Wound Care/Special Instructions: Activity: As tolerated. Take breaks as needed. Diet: Heart healthy and carb consistent diet. Avoid salts, or foods with hidden salts such as canned or boxed foods and frozen dinners. Extra salt makes your heart work harder and traps the fluid in your body for longer. Special Instructions: Take all of your medications as directed and remember to keep all of your doctor's appointments and follow-up as needed. MRI ruled out a stroke, however it did show that you have some cervical spinal stenosis (meaning narrowing of your spinal canal) secondary to degenerative disk disease. You may follow up as needed with a orthospine specialist, Dr. Hernandez. Left arm/elbow/wrist pain is likely secondary to carpal tunnel syndrome and cubital tunnel syndrome, this is why you are given IV steroids and are being discharged home on prednisone taper, Motrin, and it is highly recommended to apply ice, rest, and elevation of left upper extremity over the next couple days followed by using wrist brace to bilateral upper extremities at night to help with preventing carpal tunnel symptoms in the future. You may also follow up in office with orthopedic specialists. Your hemoglobin A1c is 5.4%, great job on keeping your blood glucose levels under control!!! Thank you for allowing us to participate in your care, it was truly a pleasure having you for our patient!!! Discharge Disposition: HOME SELF-CARE
--- NOTE | 2021-12-12 14:49 | P.CRDCN ---
History of Present Illness Consult date: 12/12/21 History of present illness: This is a 41-year-old gentleman with history of hypertension, hypothyroidism and diabetes and also obesity who was admitted to hospital with numbness involving the left lower leg followed by left upper arm. He was evaluated by neurology for possible CVA/TIA. It was felt that the symptoms could be related to cervical disc disease. He is also being evaluated by orthopedics. We're asked to see the patient because of APCs and also complaints of chest pain. Patient has been having this intermittent chest pain for the last 6 months. This is brief in duration and nonexertional. There is some tenderness associated with it. Patient does use his both arms during work. His cardiac enzymes are negative. EKG did not reveal any acute changes. His chest pains appear to be atypical and probably muscular skeletal. His EKG also showed some APCs, which is asymptomatic. No other significant arrhythmias are noted. At this point patient could be discharged home and be evaluated by stress test or stress echo as an outpatient. Follow-up after the testing Review of Systems As per the chart Past Medical History Past Medical History: Diabetes Mellitus, Thyroid Disorder History of Any Multi-Drug Resistant Organisms: None Reported Past Surgical History: Orthopedic Surgery, Tonsillectomy Additional Past Surgical History / Comment(s): right ankle Past Anesthesia/Blood Transfusion Reactions: No Reported Reaction Past Psychological History: No Psychological Hx Reported Past Alcohol Use History: Daily Past Drug Use History: None Reported - Past Family History Mother Family Medical History: Cancer, COPD Additional Family Medical History / Comment(s): passed from lung and breast cancer Father Family Medical History: Hypertension Additional Family Medical History / Comment(s): of a heart attack Brother(s) Family Medical History: Diabetes Mellitus Additional Family Medical History / Comment(s): half brother hx diabets, dialysis pt Medications and Allergies Home Medications Medication Instructions Recorded Confirmed Type Indomethacin [Indocin] 50 mg PO DAILY 12/10/21 12/10/21 History Levothyroxine Sodium [Synthroid] 75 mcg PO DAILY 12/10/21 12/10/21 History Lisinopril-Hctz 20-25 mg 1 tab PO DAILY 12/10/21 12/10/21 History [Zestoretic 20-25] Semaglutide [Ozempic] 0.5 mg SQ TH 12/10/21 12/10/21 History metFORMIN HCL [metFORMIN HCL ER] 1,000 mg PO BID 12/10/21 12/10/21 History Ibuprofen [Motrin] 800 mg PO Q8H PRN #24 tab 12/12/21 Rx Magnesium Oxide [Mag-Ox] 400 mg PO DAILY 30 Days #30 tab 12/12/21 Rx predniSONE See Taper PO DIRECTED 12 Days 12/12/21 Rx #30 tab Allergies Allergy/AdvReac Type Severity Reaction Status Date / Time No Known Allergies Allergy Verified 12/10/21 15:59 Physical Exam Vitals: Vital Signs Temp Pulse Resp BP Pulse Ox 12/12/21 08:00 81 18 120/77 98 12/12/21 04:00 98.1 F 65 12 132/77 97 12/11/21 23:37 97.5 F L 74 12 144/83 98 12/11/21 19:48 98.2 F 74 12 123/81 99 12/11/21 16:00 97.9 F 69 16 132/80 98 Intake and Output 12/11/21 12/12/21 12/12/21 22:59 06:59 14:59 Intake Total 1320 480 Balance 1320 480 Intake: Intake, IV Titration 900 Amount Magnesium Sulfate-D5w Pmx 300 1 gm In Dextrose/Water 1 100ml.bag @ 100 mls/hr IVPB Q1H [facility] Rx#: [id number] Sodium Chloride 0.9% 1, 600 000 ml @ 100 mls/hr IV . Q10H [facility] Rx#:[id number] Oral 420 480 Other: Voiding Method Toilet Toilet # Voids 2 GENERAL EXAM: Patient is alert and oriented and doesn't appear to be in any acute distress HEENT: Normocephalic. Normal reaction of pupils, equal size, normal range of extraocular motion. No erythema or exudates in the throat. NECK: No masses, no nuchal rigidity. CHEST: No chest wall deformity. Tenderness in the left upper chest LUNGS: Equal air entry with no crackles or wheeze. HEART: S1 and S2 normal with no audible mumurs or gallops. Regular rhythm, femorals equal on both sides.. ABDOMEN: No hepatosplenomegaly, normal bowel sounds, no guarding or rigidity. SKIN: No rashes CENTRAL NERVOUS SYSTEM: No focal deficits. EXTREMITIES: No cyanosis, clubbing or edema. Results 12/11/21 08:22 12/11/21 08:22 Cardiac Enzymes 12/11/21 12/11/21 12/11/21 Range/Units 14:54 17:49 21:05 Troponin I <0.012 <0.012 <0.012 (0.000-0.034) ng/mL Current Medications Generic Name Dose Route Start Last Admin Trade Name Freq PRN Reason Stop Dose Admin Acetaminophen 650 mg 12/11/21 23:30 12/12/21 06:23 Acetaminophen Tab 325 Mg Tab PO 650 mg Q6HR PRN Administration Fever and/ or Pain Aspirin 81 mg 12/11/21 09:00 12/12/21 09:59 Aspirin 81 Mg PO 81 mg DAILY [facility] Administration Atorvastatin Calcium 40 mg 12/11/21 21:00 12/11/21 20:30 Atorvastatin 40 Mg Tab PO 40 mg HS [facility] Administration Lisinopril/HCTZ 1 each 12/11/21 09:00 12/12/21 09:59 Lisinopril-Hctz 20-25 Mg 1 Each Tab PO 1 each DAILY [facility] Administration Heparin Sodium (Porcine) 5,000 unit 12/11/21 00:00 12/12/21 10:00 Heparin Sodium,Porcine/Pf 5,000 Unit/0.5 Ml Syringe SQ Not Given Q8HR [facility] Sodium Chloride 1,000 mls @ 100 mls/hr 12/10/21 16:00 12/12/21 06:21 Saline 0.9% IV Not Given .Q10H [facility] Insulin Aspart 0 unit 12/11/21 07:30 12/12/21 06:20 Insulin Aspart (Novolog) 100 Unit/Ml Vial SQ Not Given AC-TID [facility] Protocol Levothyroxine Sodium 75 mcg 12/11/21 06:30 12/12/21 06:23 Levothyroxine 75 Mcg Tab PO 75 mcg DAILY@0630 [facility] Administration Magnesium Oxide 400 mg 12/12/21 12:15 12/12/21 13:14 Magnesium Oxide 400 Mg Tab PO 400 mg DAILY [facility] Administration Nitroglycerin 0.4 mg 12/11/21 14:09 12/12/21 02:42 Nitroglycerin Sl Tabs 0.4 Mg Tab SUBLINGUAL 0.4 mg Q5M PRN Administration Chest Pain Thiamine HCl 100 mg 12/11/21 09:30 12/12/21 09:59 Thiamine 100 Mg Tab PO 100 mg DAILY [facility] Administration Intake and Output 12/11/21 12/12/21 12/12/21 22:59 06:59 14:59 Intake Total 1320 480 Balance 1320 480 Intake: Intake, IV Titration 900 Amount Magnesium Sulfate-D5w Pmx 300 1 gm In Dextrose/Water 1 100ml.bag @ 100 mls/hr IVPB Q1H [facility] Rx#: [id number] Sodium Chloride 0.9% 1, 600 000 ml @ 100 mls/hr IV . Q10H [facility] Rx#:[id number] Oral 420 480 Other: Voiding Method Toilet Toilet # Voids 2 12/11/21 08:22 12/11/21 08:22 EKG Interpretations (text) Sinus rhythm Assessment and Plan (1) Chest pain Current Visit: Yes Status: Acute Code(s): R07.9 - CHEST PAIN, UNSPECIFIED SNOMED Code(s): 91112165 (2) PAC (premature atrial contraction) Current Visit: Yes Status: Acute Code(s): I49.1 - ATRIAL PREMATURE DEPOLA RIZATION SNOMED Code(s): 126521120 (3) Essential hypertension Current Visit: Yes Status: Acute Code(s): I10 - ESSENTIAL (PRIMARY) HYPERTENSION SNOMED Code(s): 25829653 (4) Diabetes mellitus Current Visit: Yes Status: Acute Code(s): E11.9 - TYPE 2 DIABETES MELLITUS WITHOUT COMPLICATIONS SNOMED Code(s): 18572873 Plan: From cardiac standpoint since chest pains are atypical and muscular skeletal. APCs, nonsymptomatic. Patient could be discharged home and be evaluated by stress echo as an outpatient. Follow-up after the testing
== END 2021-12-12 15:37 | disposition home or self-care (01) ==
LOC: EC 13:01 → 3SCARD 15:58
PROVIDERS: ADMIT Internal Medicine; ATTEND Internal Medicine
DX: M48.02 Spinal stenosis, cervical region (principal); G56.03 Carpal tunnel syndrome, bilateral upper limbs; G56.22 Lesion of ulnar nerve, left upper limb; M47.812 Spondylosis without myelopathy or radiculopathy, cervical region; M50.30 Other cervical disc degeneration, unspecified cervical region; R20.0 Anesthesia of skin; R07.2 Precordial pain; E83.42 Hypomagnesemia; I49.1 Atrial premature depolarization; E11.9 Type 2 diabetes mellitus without complications; I10 Essential (primary) hypertension; E03.9 Hypothyroidism, unspecified; R53.1 Weakness; G89.29 Other chronic pain; M54.50 Low back pain, unspecified; E66.9 Obesity, unspecified; Z68.41 Body mass index [BMI] 40.0-44.9, adult; Z79.84 Long term (current) use of oral hypoglycemic drugs; Z79.1 Long term (current) use of non-steroidal anti-inflammatories (NSAID); Z79.899 Other long term (current) drug therapy; Z79.890 Hormone replacement therapy; Z71.41 Alcohol abuse counseling and surveillance of alcoholic; Z83.3 Family history of diabetes mellitus; Z80.3 Family history of malignant neoplasm of breast; Z80.1 Family history of malignant neoplasm of trachea, bronchus and lung; Z84.1 Family history of disorders of kidney and ureter; Z82.49 Family history of ischemic heart disease and other diseases of the circulatory system; Z82.5 Family history of asthma and other chronic lower respiratory diseases
CPT/HCPCS: 96365; 96366; 96372 ×2; 96375; 99285; 36415; 94760; 93005; 93306; 97161; 97165; 92523; 80061; 80053; 80048; 84443; 83735 ×2; 84484 ×2; 85025 ×2; 85610; 85730; 83036; 71046; 70496; 70450; 70498; 70553; 72141; G0378 ×3; J1100; J3475; A9585; Q9967; J1644 ×2